=== PATIENT | male | born 1985 | race Caucasian/White ===

== ENCOUNTER 2021-11-30 13:15 | Emergency (ER) | payer BC | END 2021-11-30 16:38 | disposition home or self-care (01) | LOC: JD.ED 13:15 | DX: R07.89 Other chest pain (principal); F17.210 Nicotine dependence, cigarettes, uncomplicated | CPT/HCPCS: 36415; 71046; 71046-26; 80053; 83735; 83880; 84484; 85007; 85027; 85379; 85610; 85730; 93005; 93010; 99285; 99285-25 ==